=== PATIENT | male | born 1950 | race Caucasian/White ===

== ENCOUNTER 2017-05-03 06:26 | Emergency (ER) | payer BC, MEDICARE ==
[2017-05-03] MEDS ORDERED: AMLODIPINE BESYLATE 5MG TAB PO SCH (07:15)
--- NOTE | 2017-05-03 07:15 | Emergency Department Record ---
History of Present Illness - General Chief complaint: Pain Stated complaint: L ARM PAIN Time Seen by Provider: 05/03/17 06:59 Source: Patient, Family Mode of Arrival: Ambulatory Limitations: No limitations - History of Present Illness Initial comments: The patient is here due to a 2-3 hour hx of L arm aching. The aching is from the L elbow to the shoulder. The onset was at 4am. He denies any fall, trauma, CP, SOB, or sweating. The patient states he has a hx of similar problems but this is worse. Additionally he states he stopped his BP medicines about a year ago due to rectal bleeding. He also states he has continued to bleed off and on and it is worse recently. Additionally he has had a 25 lb wt loss, fatigue, pale skin, and an abdominal mass that seems to be getting bigger for the last 3 months but denies any abdominal pain, bloating or vomiting. MD Complaint: Extremity pain Onset/Timin -: Hour(s) Location: Left Radiation: None Severity scale (1-10): 5 Associated Symptoms: Other - Related Data Previous Rx's Medication Instructions Recorded Amlodipine Besylate [Norvasc] 10 mg PO DAILY #30 tab 12/17/14 Atorvastatin Calcium 40 mg PO QHS #30 tab 12/17/14 Hydrocodone/Acetaminophen [[place] 1 each PO QID #20 tablet 05/03/17 5-325 Tablet] Allergies Allergy/AdvReac Type Severity Reaction Status Date / Time No Known Drug Allergies Allergy Verified 12/15/14 19:11 Travel Screening - Travel/Exposure Within Last 30 Days Have you traveled within the last 30 days?: No - Travel/Exposure Within Last Year Have you traveled outside the [place] in the last year?: No - Additonal Travel Details Have you been exposed to anyone with a communicable illness?: No - Travel Symptoms Symptom Screening: None Review of Systems Constitutional: Reports: Malaise. Denies: Chills, Fever Eyes: Denies: Eye discharge ENT: Denies: Congestion Respiratory: Denies: Cough, Dyspnea Cardiovascular: Denies: Arrhythmia, Paroxysmal nocturnal dyspnea Endocrine: Reports: Fatigue Gastrointestinal: Reports: Melena. Denies: Diarrhea Genitourinary: Denies: Dysuria Musculoskeletal: Denies: Arthralgia Past Medical History - SOCIAL HISTORY Smoking Status: Never smoker Alcohol Use: None Drug Use: None - RESPIRATORY Hx Respiratory Disorders: No Hx Asthma: No Hx Bronchitis: No Hx COPD: No Hx Dyspnea: No Hx Pneumonia: No Hx Pulmonary Embolism: No Hx Sleep Apnea: No Hx Tuberculosis: No Hx of CPAP: No - CARDIOVASCULAR Hx Cardio Disorders: Yes Hx Abnormal EKG: No Hx Cardiac Cath: No Hx Chest Pain: No Hx CHF: No Hx Deep Vein Thrombosis: No Hx Edema: No Hx Heart Attack: No Hx Hypertension: Yes Hx Hypotension: No Hx Irregular Heartbeat: No Hx Palpitations: No Hx Pacemaker/Defib: No Hx Vascular Disease: No - NEURO Hx Neuro Disorders: No Hx Brain Tumor: No Hx CVA: No Hx Dementia: No Hx Dizziness: No Hx Headaches: No Hx Neuropathy: No Hx Parkinson's Disease: No Hx Seizures: No Hx Speech Problem: No Hx TIA: No - GI Hx GI Disorders: No Hx Abdominal Pain: No Hx Celiac Disease: No Hx Crohn's Disease: No Hx Diverticulitis: No Hx GI Bleed: No Comment:: recent weight loss. - Hx Genitourinary Disorders: No Hx Bladder Problem: No - ENDOCRINE Hx Endocrine Disorders: No Hx Diabetes: No Hx Thyroid Disease: No - MUSCULOSKELETAL Hx Musculoskeletal Disorders: No Hx Arthritis: No Hx Back Injury: No Hx Fibromyalgia: No Hx Gout: No Hx Musculoskeletal Disease: No - PSYCH Hx Psych Problems: No Hx Anxiety: No Hx Behavior Problems: No Hx Depression: No Hx Emotional Abuse: No - HEMATOLOGY/ONCOLOGY Hx Hematology/Oncology Disorders: No Hx Anemia: No Hx Cancer: No Family Medical History Any Significant Family History?: Yes Hx Cancer: Brother/Sister *Cancer Comment: Mother of Lupus Hx Stroke: Father Physical Exam - General General Appearance: Alert, Oriented x3, Cooperative, No acute distress - Head Head exam: Atraumatic, Normocephalic, Normal inspection - Eye Eye exam: PERRL. negative: Normal appearance (Pale conjunctiva.) - ENT Throat exam: Normal inspection. negative: Tonsillar erythema, Tonsillar exudate - Neck Neck exam: Normal inspection, Full ROM. negative: Tenderness - Respiratory Respiratory exam: Normal lung sounds bilaterally. negative: Respiratory distress - Cardiovascular Cardiovascular Exam: Regular rate, Normal rhythm, Normal heart sounds - GI/Abdominal GI/Abdominal exam: Soft, Mass (There is a palpable mass to the RUQ medially.). negative: Guarding - Extremities Extremities exam: Normal inspection, Full ROM, Normal capillary refill. negative: Tenderness - Neurological Neurological exam: Alert. negative: Motor sensory deficit - Skin Skin exam: Pallor Course Vital Signs 05/03/17 06:31 Temperature 98.0 F Pulse Rate [ 82 Pulse Ox Probe] Respiratory 16 Rate Blood Pressure 197/117 [Right Arm] Pulse Ox 98 - Reevaluation(s) Reevaluation #1: The patient is resting comfortably and denies any AP, nausea, or vomiting. He states his L arm pain is improved. I did discuss the CT results with the patient and the need for further eval. We will set the patient up for a Colonoscopy with Dr. Brothers for next Saturday. 05/03/17 09:02 Reevaluation #2: I did discuss the case with Dr. Rinaldi and he will see the patient on Saturday to discuss the issues further. The patient is to restart his medicines and return to the ER for any problems. Additionally his L arm pain did resolve with the [place]. 05/03/17 09:15 05/03/17 09:16 Medical Decision Making - Data Complexity MDM Data: Labs Ordered and/or Reviewed, X-Ray Ordered and/or Reviewed, EKG Ordered and/or Reviewed - Lab Data Result diagrams: 05/03/17 07:14 05/03/17 07:14 - EKG Data -: EKG Interpreted by Me EKG: No Acute Changes, Unchanged From Previous - Radiology Data Radiology results: Report reviewed (Abd CT: Mass distal Transverse colon with multiple liver mets.) Disposition Disposition: Discharge Clinical Impression: Colonic mass Disposition: Home, Self-Care Condition: (2) Stable Instructions: Arm Pain (ED) Additional Instructions: Please use the [place] for pain and drink a computer system technician of [place] Instant Breakfast with a scoop of ice cream daily, 1/3 in the morning, afternoon, and evening. Please keep your appointment with Dr. Rinaldi for next Sat and return to the ER for any abdominal pain, bloating, or vomiting. Prescriptions: Hydrocodone/Acetaminophen [[place] 5-325 Tablet] 1 each PO QID #20 tablet Referrals: [facility] [Provider Group] Forms: Patient Portal Access Time of Disposition: 09:23 Quality - Quality Measures Quality Measures: N/A - Blood Pressure Screening View Details: Yes Does Patient Have Any of the Following: No, Active Dx of HTN Blood Pressure Classification: Hypertensive Reading Systolic Measurement: 149 Diastolic Measurement: 103 Screening for High Blood Pressure: Patient Exclusion, Hx of HTN [G9744]
[2017-05-03 07:22] LABS: BASO % 0.4 % (0-6); EOS % 0.4 % (0-6); HEMATOCRIT 34.2 % (42.0-52.0); HEMOGLOBIN 9.8 gm/dl (14.0-18.0); LYMPH % 6.3 % (16-45); MEAN CELL VOLUME 70.8 fl (81-97); MEAN CORPUSCULAR HGB CONC 28.7 g/dl (32-36); MEAN PLATELET VOLUME 8.6 fl (7.4-10.4); MONO % 7.8 % (0-9); PLATELET COUNT 467 K/uL (130-400); RED BLOOD COUNT 4.83 M/uL (4.40-5.70); RED CELL DISTRIBUTION WIDTH 19.8 % (11.5-14.5); WHITE BLOOD COUNT W/O DIFF 10.3 K/uL (4.2-12.2)
[2017-05-03 07:25] LABS: MEAN CORPUSCULAR HEMOGLOBIN 20.2 pg (27-33)
[2017-05-03 07:35] LABS: BLOOD UREA NITROGEN 22 mg/dL (8-23); EST GLOMERULAR FILTRATION RATE > 60 mL/min
[2017-05-03 07:36] LABS: INR 1.01; PARTIAL THROMBOPLASTIN TIME 27.1 SECONDS (24.5-39.1); PROTHROMBIN TIME (PATIENT) 10.9 SECONDS (9.5-12.1); TOTAL PROTEIN 7.4 g/dL (6.6-8.7)
[2017-05-03 07:38] LABS: GLUCOSE,RANDOM 124 mg/dL (74-109)
[2017-05-03] MEDS ORDERED: POTASSIUM CHLORIDE 20 MEQ TABLET PO ONE (07:40)
[2017-05-03 07:41] LABS: ALB/GLOB RATIO 1.1 (1.1-1.8); ALBUMIN 3.8 g/dL (4.0-5.0); ALKALINE PHOSPHATASE 354 U/L (40-129); ALT/SGPT 41 U/L (<41); AST/SGOT 41 U/L (10.0-50.0); CREATINE PHOSPHOKINASE 46 U/L (39-308)
[2017-05-03 07:43] LABS: CKMB < 1.0 ng/mL (<6.73)
[2017-05-03 07:55] LABS: HYPOCHROMIA 2+
[2017-05-03] MEDS ORDERED: HYDROCODONE/APAP 5/325MG TABLET PO ONE (08:42)
--- NOTE | 2017-05-03 13:45 | RADIOLOGY REPORT ---
EXAM: CHEST, TWO VIEWS HISTORY: RIGHT ARM PAIN. TECHNIQUE: PA and lateral views of the chest were obtained. Comparison: Two view chest dated 12/15/14. FINDINGS: The heart size is normal. Prominent torsion of the aorta. The lungs appear expanded with no acute infiltrate identified. There is now seen about a 1.5 cm nodule in the right posterior costophrenic angle. This was not apparent on the prior exam, but when correlated with the abdomen CT from today it appears to represent a densely calcified granuloma. IMPRESSION: 1. PROMINENT TORSION OF THE AORTA. 2. 1.5 CM CALCIFIED GRANULOMA RIGHT POSTERIOR COSTOPHRENIC ANGLE. 3. NO ACUTE INFILTRATE IDENTIFIED. JOB NUMBER: [id number] [facility]
--- NOTE | 2017-05-03 14:07 | RADIOLOGY REPORT ---
EXAM: LEFT HUMERUS HISTORY: PAIN FROM LEFT ELBOW TO LEFT SHOULDER. TECHNIQUE: AP and lateral views of the left humerus were obtained. Comparison: None. FINDINGS: Apparent IV access device in the antecubital fossa. No definite fracture or destructive lesion identified involving the humerus. No abnormal soft tissue calcification identified. IMPRESSION: THE LEFT HUMERUS APPEARS ESSENTIALLY NEGATIVE. JOB NUMBER: [id number] MTDD
--- NOTE | 2017-05-03 14:22 | CT SCAN REPORT ---
EXAM: CT OF THE ABDOMEN AND PELVIS WITHOUT CONTRAST HISTORY: ABDOMINAL PAIN, PALPABLE RIGHT UPPER QUADRANT MASS. TECHNIQUE: Axial CT scan of the abdomen and pelvis was performed without oral or IV contrast at the referring physician's request. Comparison: None. FINDINGS: There is probably a single tiny calcified gallstone in the dependent portion of the gallbladder. This could also be a tiny calcification along the wall of the gallbladder. Some small calcifications are seen in both kidneys probably representing currently nonobstructing intrarenal calculi. No hydronephrosis or hydroureter on either side with no definite ureteral calculus seen on either side and no bladder calculus identified. The prostate is enlarged measuring about 4.6 cm in AP x 6.3 cm in transverse diameters containing some calcification. Recommend correlation with physical exam and serum PSA. There are multiple low attenuation masses arising from both kidneys. These are incompletely evaluated without IV contrast although presumably represent multiple bilateral renal cysts, some of which may be a small amount of calcification in the wall. There also appears to be a subtle, but very large mass like appearance in the liver measuring about 13.4 cm in size. I suspect there are some additional smaller masses in the liver as well with one measuring about 3.4 cm in size and another in the lateral segment left lobe replacing much of the lateral segment inferiorly measuring up to about 8.3 cm. Findings are suspicious for extensive metastatic disease involving the liver. Given the limitations with lack of contrast, no definite splenic, adrenal, or pancreatic mass identified. There is some mild ectasia of the abdominal aorta which superiorly measures about 3 x 3.5 cm, just below the renals measures about 2.5 x 2.6 cm, and in the infrarenal region measures up to about 2.7 x 2.6 cm. The common iliacs are mildly dilated as well measuring about 2.1 cm on the right and 1.7 cm on the left. Limited evaluation of the bowel without oral contrast, but there is an appearance quite suspicious for some form of mass in the region of the distal transverse colon measuring about 5.9 cm in size which may represent a combination of an intussusception of the colon in this region and a mass in the colon. Findings are suspicious for colon carcinoma with hepatic metastases given the liver findings. There is an approximately 1.4 cm calcified granuloma in the right posterior costophrenic angle. No free intraperitoneal air or free intraperitoneal fluid evident. Prominent facet joint arthropathy in the lower lumbar spine. Prominent spurring in the lower thoracic spine. IMPRESSION: 1. MULTIPLE MASSES WITHIN THE LIVER, THE LARGEST MEASURING UP TO ABOUT 13.4 CM IN SIZE WORRISOME FOR HEPATIC METASTATIC DISEASE. 2. ABNORMAL APPEARANCE IN THE REGION OF THE DISTAL TRANSVERSE COLON LIKELY REPRESENTING A RELATIVELY LOCALIZED INTUSSUSCEPTION PROBABLY WITH AN ASSOCIATED COLON MASS. FINDINGS SUSPICIOUS FOR COLON CARCINOMA WITH ASSOCIATED INTUSSUSCEPTION. 3. ENLARGED PROSTATE. 4. SMALL NONOBSTRUCTING CALCULI IN THE KIDNEYS. THERE ARE PROBABLY MULTIPLE RENAL CYSTS WELL. 5. SOME ECTASIA OF THE ABDOMINAL AORTA AND COMMON ILIAC ARTERIES. 6. CALCIFIED GRANULOMA RIGHT POSTERIOR COSTOPHRENIC ANGLE. [facility]BER: [id number] [facility]
== END 2017-05-03 10:00 | disposition home or self-care (01) ==
LOC: ER 06:26
DX: K63.89 Other specified diseases of intestine (principal); M79.622 Pain in left upper arm; R63.4 Abnormal weight loss; R53.83 Other fatigue; I10 Essential (primary) hypertension
CPT/HCPCS: 71020; 74176; 80053; 82550; 82553; 84484; 85027; 85610; 85730; 93005; 93010; 99284

== ENCOUNTER 2017-05-06 07:03 | Day surgery (SDC) | payer BC, MEDICARE ==
[2017-05-06] MEDS ORDERED: PROPOFOL 10 MG/ML VIAL IV ONE (07:04)
[2017-05-06] MEDS ORDERED: LIDOCAINE 2% MDV (20MG/ML) 20ML VIAL IV ONE (07:04)
--- NOTE | 2017-05-06 13:40 | Operative Note ---
Dictated by Dr. Seven Jarrtet DATE OF SURGERY: 05/06/2017 PREOPERATIVE DIAGNOSIS: Rectal bleeding, abnormal CT with colon mass. POSTOPERATIVE DIAGNOSES: 1. Large transverse colon mass. 2. Unable to traverse colonoscope beyond colon mass. PROCEDURE: COLONOSCOPY to transverse colon. ENDOSCOPIST: Fabricio Bonilla DO [employer] ATTENDANT: Dr. Seven Jarrett Anesthesia: Per Department of Anesthesia. Complications: None. INDICATION FOR PROCEDURE: A 67-year-old male presented with rectal bleeding, and a CT scan does show a transverse colon mass. Patient's last colonoscopy was 15 years ago, and colonoscopy was performed to evaluate further for cause of rectal bleeding and abnormal CT scan. PROCEDURE: The procedure was explained to the patient including risks, benefits , and alternatives. The patient had an opportunity to ask and get his questions answered. Patient agreed to the procedure and signed written informed consent. Patient was brought to the endoscopy suite and was placed in left lateral decubitus position. Anesthesia was begun. A well-lubricated Olympus PCF-180 colonoscope was inserted into the rectum. The scope was advanced through the rectum into the transverse colon about 70 cm from anal verge where a large colon mass was identified. The overall quality of the prep was adequate. The scope was attempted to be advanced further beyond the transverse colon, however this colon mass appeared to be about 6-8 cm in size and nearly obstructing, which caused inability to traverse the colonoscope further beyond the site of the colon mass. At this time, multiple biopsies of the colon mass were obtained and an ink spot tattoo was applied at the distal end of the colon mass. The scope was then withdrawn carefully and slowly from the transverse colon to the descending colon to sigmoid colon to rectum. The scope was retroflexed at the rectum, which appeared unremarkable. The scope was withdrawn completely and the patient tolerated with procedure well without any immediate complications. RECOMMENDATION: 1. Await biopsy results. 2. The case was discussed with Dr. Tuttle and the patient will schedule a followup appointment with Dr. Tuttle in the office in a couple of days. Remain on liquid diet with Ensure. 3. Colonoscopy pending further studies and management. CC: DO Tucker Do DO MTDD
== END 2017-05-06 09:17 | disposition home or self-care (01) ==
LOC: HOP 07:03
PROVIDERS: ATTEND Internal Medicine Gastroenterology
DX: C18.4 Malignant neoplasm of transverse colon (principal); I10 Essential (primary) hypertension; E78.00 Pure hypercholesterolemia, unspecified

== ENCOUNTER 2018-07-19 11:26 | Emergency (ER) | payer MEDICARE ==
[2018-07-19] MEDS ORDERED: MORPHINE SULFATE 10 MG/ML VIAL IVP ONE (11:59)
[2018-07-19] MEDS ORDERED: ONDANSETRON HCL IV 4 MG/2 ML VIAL IVP ONE (11:59)
--- NOTE | 2018-07-19 12:04 | Emergency Department Record ---
History of Present Illness - General Chief Complaint: Abdominal Pain Stated Complaint: CENTER ABD PAIN Time Seen by Provider: 07/19/18 11:56 Source: Patient Mode of Arrival: Ambulatory Limitations: No limitations - History of Present Illness Initial Comments: 68 yo male presents with abdominal pain located in the right upper abdomen. The pain started at midnight last night. He has associated nausea, vomiting, and a few loose stools. He has known colon cancer with metastatic lesions in the liver. No fevers. No cough, chest pain or shortness of breath. He has not had any significant pain for several months. His diagnoses was in April of 2017. Dr Malave is his oncologist. Dr Rinaldi is his PCP. He has a chronic midline hernia that is soft and non tender. MD Complaint: Abdominal pain -: Hour(s) (12) Location: RUQ Radiation: RUQ Migration to: RUQ Quality: Aching Consistency: Constant Improves With: Nothing Worsens With: Eating Context: Other (See HPI) Associated Symptoms: Anorexia, Diarrhea, Vomiting - Related Data Home Medications Medication Instructions Recorded Confirmed Last Taken Aspirin [Aspir-Low] 81 mg PO DAILY 07/19/18 07/19/18 07/18/18 Bevacizumab [Avastin] 25 mg IV ASDIR 07/19/18 07/19/18 07/14/18 Dexamethasone 4Mg/ml [Decadron] 4 mg IJ ASDIR 07/19/18 07/19/18 07/14/18 Fluorouracil [Adrucil] 5 gm IV ASDIR 07/19/18 07/19/18 07/14/18 Leucovorin Calcium 10 mg IJ ASDIR 07/19/18 07/19/18 07/14/18 Previous Rx's Medication Instructions Recorded Amlodipine Besylate [Norvasc] 10 mg PO DAILY #30 tab 12/17/14 Atorvastatin Calcium 40 mg PO QHS #30 tab 12/17/14 Allergies Allergy/AdvReac Type Severity Reaction Status Date / Time No Known Drug Allergies Allergy Verified 07/19/18 12:06 Review of Systems Constitutional: Denies: Chills, Fever, Malaise, Night sweats, Weakness Eyes: Denies: Eye discharge ENT: Denies: Congestion, Throat pain Respiratory: Denies: Cough, Dyspnea Cardiovascular: Denies: Chest pain, Palpitations, Syncope Endocrine: Denies: Fatigue, Polydipsia, Polyuria Gastrointestinal: Reports: Abdominal pain, Diarrhea, Nausea, Vomiting. Denies: Constipation, Hematemesis, Hematochezia, Melena Genitourinary: Denies: Dysuria, Frequency, Hematuria Musculoskeletal: Denies: Arthralgia, Back pain, Myalgia, Neck pain Skin: Denies: Bruising, Change in color, Rash Neurological: Denies: Headache Psychiatric: Denies: Anxiety Hematological/Lymphatic: Denies: Easy bleeding, Easy bruising Past Medical History - SOCIAL HISTORY Smoking Status: Never smoker - RESPIRATORY Hx Respiratory Disorders: No - CARDIOVASCULAR Hx Cardio Disorders: Yes Hx Hypertension: Yes - NEURO Hx Neuro Disorders: Yes Hx CVA: Yes - GI Hx GI Disorders: Yes Hx Abdominal Pain: No Hx GI Bleed: No Hx Rectal Bleeding: Yes Hx Wt Loss/Wt Gain: Yes (30lb in last 3 months) Hx of Polyps: Yes - Hx Genitourinary Disorders: Yes Hx Kidney Stones: Yes - ENDOCRINE Hx Endocrine Disorders: No Hx Diabetes: No Hx Thyroid Disease: No - MUSCULOSKELETAL Hx Musculoskeletal Disorders: No - PSYCH Hx Psych Problems: No - HEMATOLOGY/ONCOLOGY Hx Hematology/Oncology Disorders: Yes Hx Anemia: Yes (hgb 9.8) Family Medical History Hx Cancer: Brother/Sister *Cancer Comment: Mother of Lupus Hx Stroke: Father Physical Exam - General General Appearance: Alert, Oriented x3, Cooperative, No acute distress Limitations: No limitations - Head Head exam: Atraumatic, Normal inspection - Eye Eye exam: Normal appearance. negative: Conjunctival injection - ENT ENT exam: Normal exam Ear exam: Normal external inspection Nasal Exam: Normal inspection Mouth exam: Normal external inspection - Neck Neck exam: Normal inspection - Respiratory Respiratory exam: Normal lung sounds bilaterally. negative: Respiratory distress - Cardiovascular Cardiovascular Exam: Regular rate, Normal rhythm, Normal heart sounds - GI/Abdominal GI/Abdominal exam: Soft, Guarding, Hernia (mid line ventral hernia, very soft and NON tender), Tenderness, Other (The RUQ is tender, the remaining abdomen is very soft). negative: Diminished bowel sounds, Distended, Rigid - Rectal Rectal exam: Deferred - exam: Deferred - Extremities Extremities exam: Normal inspection - Back Back exam: Denies: CVA tenderness (R), CVA tenderness (L) - Neurological Neurological exam: Alert, Oriented X3 - Psychiatric Psychiatric exam: Normal affect, Normal mood. negative: Agitated, Anxious - Skin Skin exam: Dry, Intact, Normal color, Warm Course - Reevaluation(s) Reevaluation #1: 07/19/18 12:[address] scan 05/03/17 and Colonoscopy on 05/06/17: Large transverse colon mass 07/19/18 12:30 The CBC was reported The patient has a WBC count of 108.5 07/19/18 12:30 The Bili is 3.8 AST 113 ALT 87 Alk Phos 358 Lipase 27 07/19/18 14:38 I SUGAR Forrest of [facility] She accepts the transfer I SUGAR Toscano and Dr Kelly to inform them of the transfer Medical Decision Making - Lab Data Result diagrams: 07/19/18 12:10 07/19/18 12:10 Disposition Disposition: Transfer Clinical Impression: Elevated liver enzymes, Colon cancer, Elevated white blood cell count, unspecified Disposition: Acute Care Hospital Transfer Transfer To: [facility] Reason For Transfer: Colon cancer with mets Accepting Physician: Adriane Time Discussed w/Accepting Physician: 14:36 Condition: (2) Stable Forms: Patient Portal Access Time of Disposition: 14:36 Quality - Quality Measures Quality Measures: N/A - Blood Pressure Screening Does Patient Have Any of the Following: Active Dx of HTN Blood Pressure Classification: Hypertensive Reading Systolic Measurement: 167 Diastolic Measurement: 99 Screening for High Blood Pressure: Patient Exclusion, Hx of HTN [G9744]
[2018-07-19] MEDS ORDERED: 0.9 % SODIUM CHLORIDE 1,000 ML BAG IV ONE (12:06)
[2018-07-19 12:11] LABS: BASO % 0.2 % (0-6); HEMATOCRIT 39.7 % (42.0-52.0); HEMOGLOBIN 12.7 gm/dl (14.0-18.0); LYMPH % 0.3 % (16-45); MEAN CELL VOLUME 87.4 fl (81-97); MEAN PLATELET VOLUME 9.2 fl (7.4-10.4); MONO % 0.7 % (0-9); PLATELET COUNT 153 K/uL (130-400); RED BLOOD COUNT 4.54 M/uL (4.40-5.70); RED CELL DISTRIBUTION WIDTH 20.3 % (11.5-14.5)
[2018-07-19 12:21] LABS: BLOOD UREA NITROGEN 18 mg/dL (8-23); CREATININE 0.9 mg/dL (0.7-1.2); EST GLOMERULAR FILTRATION RATE > 60 mL/min; MEAN CORPUSCULAR HEMOGLOBIN 27.9 pg (27-33); WHITE BLOOD COUNT W/O DIFF 108.5 K/uL (4.2-12.2)
[2018-07-19 12:22] LABS: LIPASE 27 U/L (13-60); TOTAL PROTEIN 7.3 g/dL (6.6-8.7)
[2018-07-19 12:24] LABS: GLUCOSE,RANDOM 206 mg/dL (74-109)
[2018-07-19 12:27] LABS: ALB/GLOB RATIO 1.4 (1.1-1.8); ALBUMIN 4.3 g/dL (4.0-5.0); ALKALINE PHOSPHATASE 358 U/L (40-129); ALT/SGPT 87 U/L (<41); AST/SGOT 113 U/L (10.0-50.0)
[2018-07-19 12:31] LABS: INR 1.1; PARTIAL THROMBOPLASTIN TIME 27.1 SECONDS (24.5-39.1); PROTHROMBIN TIME (PATIENT) 10.8 SECONDS (9.5-12.1)
[2018-07-19] MEDS ORDERED: ERTAPENEM SODIUM 1 G in 0.9 % SODIUM CHLORIDE 100ML 100 ML IVPB ONE (14:01)
[2018-07-19] MEDS ORDERED: 0.9 % SODIUM CHLORIDE 1000ML 1,000 ML IV ONE (14:06)
--- NOTE | 2018-07-23 13:07 | CT SCAN REPORT ---
EXAM: CT OF THE ABDOMEN AND PELVIS WITH CONTRAST HISTORY: RIGHT SIDED ABDOMINAL PAIN. COLON CARCINOMA HISTORY WITH METASTASIS. TECHNIQUE: Following oral and intravenous contrast administration, helical CT examination of the abdomen and pelvis was performed including delayed images through the kidneys with 100 ml of Omnipaque 300 utilized. Comparison: CT of the abdomen and pelvis without contrast dated 05/03/17. FINDINGS: There is mild patchy opacity within the dependent lung bases, right slightly greater than left consistent with atelectasis or less likely infiltrate. A calcified granuloma is again demonstrated within the posterior right lung base measuring 13 mm in diameter. The lung bases are otherwise clear. No pleural or pericardial effusion. The heart is mildly enlarged. There is atherosclerotic calcification of the coronary arteries. The distal descending thoracic aorta is tortuous. There are multiple hypodense masses scattered within the liver consistent with metastatic disease. The largest of these is centered within the medial segment of the left liver lobe with extension into the right liver lobe. This measures 9.2 cm craniocaudad x 12.5 cm transverse x 9.7 cm AP. This causes deformity of the right and left portal veins without associated thrombosis. There is intrahepatic biliary ductal dilatation. Additional hepatic masses are as follows: High posterior segment at the right liver lobe measuring 2.8 x 3.4 cm ; inferior aspect of the lateral segment of the left liver lobe measuring 5.3 x 7 cm; posterior segment of the lower right liver lobe measuring 3.8 x 3.2 cm. Additional tiny hypodense lesions are noted within the liver as well. There is extrahepatic ductal dilatation down to the level of the ampulla without definite obstructing lesion. The common hepatic/common bile duct measures 13.5 mm. There is moderate distention of the gallbladder. Tiny dependent gallstones are suspected. No gross gallbladder wall thickening though there is questionable minor pericholecystic fat stranding. There is mild splenomegaly new since the prior 2018 examination. No pancreatic mass. The adrenal glands are not enlarged. Multiple hypodense masses are scattered throughout the kidneys. Those greater than 1 cm in diameter are of fluid density and consistent with cysts. The largest in the right kidney arises from the posterior lower pole measuring 3.2 x 3.4 cm. The lesions that are less than 1 cm in average diameter are too small for accurate characterization, but are also likely cysts. No intraabdominal nor retroperitoneal lymphadenopathy. No pelvic mass nor lymphadenopathy. There is moderate to marked enlargement of the prostate. No intrinsic urinary bladder abnormality is seen. Mild fat density prominence within the inguinal canals consistent with spermatic cord lipomas or fat within small inguinal hernia sacs. No gross bowel dilatation identified. There is enterocolic anastomosis within the right upper abdomen. The wall of the anastomosis appears borderline to mildly thickened though this may just relate to incomplete distention. No extraluminal air. There is apparent borderline to mild wall thickening of the left colon likely due to incomplete distention. There are small fat filled ventral wall hernias present. The larger more superiorly located measures 4.7 cm in diameter. No lytic or blastic bone lesion. There are degenerative changes scattered throughout the visualized spine. IMPRESSION: 1. CHANGES OF RIGHT COLECTOMY WITH RIGHT UPPER QUADRANT ENTEROCOLIC ANASTOMOSIS. THE WALL OF THE ANASTOMOSIS APPEARS BORDERLINE TO MILDLY THICKENED. THIS MAY JUST RELATE TO INCOMPLETE DISTENTION. MUCOSAL ABNORMALITY NOT ENTIRELY EXCLUDED. APPARENT BORDERLINE TO MILD WALL THICKENING OF THE LEFT COLON LIKELY DUE TO INCOMPLETE DISTENTION. 2. MULTIPLE HEPATIC MASSES CONSISTENT WITH METASTASIS. THERE IS INTRA AND EXTRAHEPATIC BILIARY DUCTAL DILATATION DOWN TO THE LEVEL OF THE AMPULLA WITHOUT DEFINITE OBSTRUCTING LESION SEEN. 3. MODERATE DISTENTION OF THE GALLBLADDER WITH TINY GALLSTONES. EQUIVOCAL PERICHOLECYSTIC FAT STRANDING. 4. MULTIPLE BILATERAL RENAL CYSTS. 5. SMALL VENTRAL WALL HERNIAS IN THE UPPER ABDOMEN APPEARING UNCOMPLICATED. FAT DENSITY PROMINENCE IN EACH INGUINAL CANAL, DISCUSSED ABOVE. 6. ENLARGED PROSTATE. 7. PATCHY OPACITIES IN EACH LUNG BASE CONSISTENT WITH ATELECTASIS OR LESS LIKELY INFILTRATE. NOT MENTIONED ABOVE IS A QUESTIONABLE TINY LEFT BASILAR PLEURAL EFFUSION. ALSO NOT MENTIONED ABOVE IS A SMALL AMOUNT OF ASCITES IN THE RIGHT UPPER QUADRANT. ADDENDUM: The large mass centered in the medial segment of the left liver lobe does cause compression of the IVC, but without associated thrombosis. JOB NUMBER: [id number] [facility]
== END 2018-07-19 15:15 | disposition short-term general hospital (02) ==
LOC: ER 11:26
DX: C18.4 Malignant neoplasm of transverse colon (principal); C78.7 Secondary malignant neoplasm of liver and intrahepatic bile duct; R94.5 Abnormal results of liver function studies; D72.829 Elevated white blood cell count, unspecified; R11.2 Nausea with vomiting, unspecified; R19.7 Diarrhea, unspecified; I10 Essential (primary) hypertension
CPT/HCPCS: 74177; 80053; 83690; 85027; 85610; 85730; 96361; 96365; 96375; 99285; J2270; J2405; J7030

== ENCOUNTER 2019-03-22 20:33 | Emergency (ER) | payer MEDICARE ==
[2019-03-22] MEDS ORDERED: CLONIDINE HCL 0.1 MG TABLET PO ONE (21:07)
--- NOTE | 2019-03-22 21:09 | Emergency Department Record ---
History of Present Illness - General Chief Complaint: Hypertension Stated Complaint: "REALLY HIGH BLOOD PRESSURE" Time Seen by Provider: 03/22/19 20:59 Source: Patient, Family - History of Present Illness Initial Comments: The patient and his and daughter are here because Juan R' blood pressure is "very high" at 198/118. He denies headache, vision changes, stroke symptoms, or any discomfort whatsoever. His family denies any confusion or changes in behavior. He has been diagnosed with colon cancer in 2017. He had it resected, and has been on chemotherapy. He currently is on maintenance infusion chemotherapy every other week at [facility] under the care of Dr. Valdivia. He gets weekly blood draws every Saturday (which is due tomorrow). He had his blood pressure medication changed from 40 mg Norvasc daily two weeks ago to Benicar (olmesartan medoxomil) 20 mg for first week and then increased to 40 mg a week ago. This helped at first but has not helped him recently. The family reports that he has had moini strokes and has a baseline very subtle confusion which has NOT changed with this blood pressure elevation. - Related Data Home Medications Medication Instructions Recorded Confirmed Last Taken Mirtazapine 15 mg PO QHS 03/22/19 03/22/19 Unknown Olmesartan Medoxomil 40 mg PO DAILY 03/22/19 03/22/19 Unknown Potassium Chloride [Klor-Con 10] 10 meq PO BID 03/22/19 03/22/19 Unknown Previous Rx's Medication Instructions Recorded Atorvastatin Calcium 40 mg PO QHS #30 tab 12/17/14 Allergies Allergy/AdvReac Type Severity Reaction Status Date / Time No Known Drug Allergies Allergy Verified 07/19/18 12:06 Review of Systems Reviewed: No additional complaints except as noted below Constitutional: Reports: As per HPI. Denies: Chills, Fever, Malaise, Night sweats, Weakness, Weight change Eyes: Reports: As per HPI. Denies: Eye discharge, Eye pain, Photophobia, Vision change ENT: Reports: As per HPI. Denies: Congestion, Dental pain, Ear pain, Epistaxis, Hearing loss, Throat pain Respiratory: Reports: As per HPI. Denies: Cough, Dyspnea, Hemoptysis, Stridor, Wheezes Cardiovascular: Reports: As per HPI. Denies: Arrhythmia, Chest pain, Dyspnea on exertion, Edema, Murmurs, Orthopnea, Palpitations, Paroxysmal nocturnal dyspnea, Rheumatic Fever, Syncope Endocrine: Reports: As per HPI. Denies: Fatigue, Heat or cold intolerance, Polydipsia, Polyuria Gastrointestinal: Reports: As per HPI. Denies: Abdominal pain, Constipation, Diarrhea, Hematemesis, Hematochezia, Melena, Nausea, Vomiting Genitourinary: Reports: As per HPI. Denies: Dysuria, Frequency, Hematuria, Incontinence, Retention, Testicular pain, Testicular mass, Urgency Musculoskeletal: Reports: As per HPI. Denies: Arthralgia, Back pain, Gout, Joint swelling, Myalgia, Neck pain Skin: Reports: As per HPI. Denies: Bruising, Change in color, Change in hair/nails, Lesions, Pruritus, Rash Neurological: Reports: As per HPI. Denies: Abnormal gait, Confusion, Headache, Numbness, Paresthesias, Seizure, Tingling, Tremors, Vertigo, Weakness Psychiatric: Reports: As per HPI. Denies: Anxiety, Auditory hallucinations, Depression, Homicidal thoughts, Suicidal thoughts, Visual hallucinations Hematological/Lymphatic: Reports: As per HPI. Denies: Anemia, Blood Clots, Easy bleeding, Easy bruising, Swollen glands Past Medical History - SOCIAL HISTORY Smoking Status: Never smoker - RESPIRATORY Hx Respiratory Disorders: No - CARDIOVASCULAR Hx Cardio Disorders: Yes Hx Hypertension: Yes - NEURO Hx Neuro Disorders: Yes Hx CVA: Yes - GI Hx GI Disorders: Yes Hx Abdominal Pain: No Hx GI Bleed: No Hx Rectal Bleeding: Yes Hx Wt Loss/Wt Gain: Yes (30lb in last 3 months) Hx of Polyps: Yes - Hx Genitourinary Disorders: Yes Hx Kidney Stones: Yes - ENDOCRINE Hx Endocrine Disorders: No Hx Diabetes: No Hx Thyroid Disease: No - MUSCULOSKELETAL Hx Musculoskeletal Disorders: No - PSYCH Hx Psych Problems: No - HEMATOLOGY/ONCOLOGY Hx Hematology/Oncology Disorders: Yes Hx Anemia: Yes (hgb 9.8) Family Medical History Hx Cancer: Brother/Sister *Cancer Comment: Mother of Lupus Hx Stroke: Father Physical Exam - General General Appearance: Alert, Oriented x3, Cooperative, No acute distress - Head Head exam: Normal inspection - Eye Eye exam: Normal appearance, PERRL, EOMI. negative: Conjunctival injection, Nystagmus Pupils: Normal accommodation - ENT ENT exam: Normal exam, Mucous membranes moist, Normal external ear exam, Normal orophraynx, TM's normal bilaterally Ear exam: Normal external inspection. negative: External canal tenderness Nasal Exam: Normal inspection. negative: Discharge, Sinus tenderness Mouth exam: Normal external inspection, Tongue normal Teeth exam: Normal inspection. negative: Dental caries Throat exam: Normal inspection. negative: Tonsillar erythema, Tonsillar exudate - Neck Neck exam: Normal inspection, Full ROM. negative: Lymphadenopathy, Meningismus, Tenderness - Respiratory Respiratory exam: Normal lung sounds bilaterally. negative: Respiratory distress - Cardiovascular Cardiovascular Exam: Regular rate, Normal rhythm, Normal heart sounds - GI/Abdominal GI/Abdominal exam: Soft, Normal bowel sounds. negative: Tenderness - Rectal Rectal exam: Deferred - exam: Deferred - Extremities Extremities exam: Normal inspection, Full ROM, Normal capillary refill. negative: Tenderness - Back Back exam: Reports: Normal inspection, Full ROM. Denies: Muscle spasm, Rash noted, Tenderness - Neurological Neurological exam: Alert, CN II-XII intact, Normal gait, Oriented X3, Reflexes normal. negative: Altered, Motor sensory deficit - Psychiatric Psychiatric exam: Normal affect, Normal mood - Skin Skin exam: Dry, Intact, Normal color, Warm Course Vital Signs 03/22/19 20:42 Pulse Rate [ 73 Pulse Ox Probe] Respiratory 20 Rate Blood Pressure 206/116 [Left Arm] Pulse Ox 98 - Reevaluation(s) Reevaluation #1: Repeat blood pressure 159/105. Patient is ready for DC home. He will be seen tomorrow for blood work, chemotherapy, and recheck as previously arranged. All questions answered. Ready for DC. 03/22/19 22:08 Medical Decision Making - Management Options MDM Management: No Additional Work-up Planned Disposition Disposition: Discharge Clinical Impression: Hypertensive urgency Disposition: Home, Self-Care Condition: (1) Good Instructions: Hypertension (ED) Additional Instructions: Continue present medications. Thuyw with Dr. Valdivia as previously arranged for your oncology appointment tomorrow. Quality - Quality Measures Quality Measures: N/A - Blood Pressure Screening Does Patient Have Any of the Following: No Blood Pressure Classification: Hypertensive Reading Systolic Measurement: 159 Diastolic Measurement: 105 Screening for High Blood Pressure: Patient Exclusion, Hx of HTN [[id number]]
== END 2019-03-22 22:18 | disposition home or self-care (01) ==
LOC: ER 20:33
DX: I16.0 Hypertensive urgency (principal); C18.9 Malignant neoplasm of colon, unspecified
CPT/HCPCS: 99283